=== PATIENT | female | born 1965 | race Caucasian/White ===

== ENCOUNTER 2017-07-25 17:18 | Observation (INO) ==
--- NOTE | 2017-07-25 18:55 | Emergency Department Note ---
Disposition Clinical Impression: Chest pain Qualifiers: Chest pain type: unspecified Qualified Code(s): R07.9 - Chest pain, unspecified Iron deficiency anemia Qualifiers: Iron deficiency anemia type: unspecified iron deficiency Qualified Code(s): D50.9 - Iron deficiency anemia, unspecified Disposition: Admitted As Inpatient Condition: Fair Referrals: NONE,PCP [Primary Care Provider] - Forms: ED Satisfaction Letter, Work/School Release Time of Disposition: 19:59 General Adult HPI - General Chief complaint: ED Abdominal Pain Stated complaint: "weak & tired, low iron" Time Seen by Provider: 07/25/17 18:40 Source: patient Mode of arrival: ambulatory Limitations: no limitations Nursing Notes Reviewed: Yes Vital Signs Reviewed: Yes - History of Present Illness HPI Narrative: 51-year-old with a history of recurrent iron deficiency anemia who comes in complaining of increasing fatigue tiredness she has been having intermittent chest pain for the last couple of days and some dyspnea on exertion. Saw her doctor yesterday they did some lab work hemoglobin was 10 range but she did get a ferritin level of 3.7 with a normal range of 11.1-264 her iron level was 18 reference range is 50-175 her total iron binding capacity is in the normal range along with a normal percent saturation. Pt Subjective Complaint: Generalized weakness intermittent chest pain history of low iron Onset (ago): day(s) (2) Location: chest Radiation: non-radiation Pain Severity: moderate Quality: aching Consistency: intermittent Improves with: nothing Worsens with: other (Exertion) Associated symptoms: Reports: chest pain, weakness - Related Data Allergies Allergy/AdvReac Type Severity Reaction Status Date / Time sulfamethoxazole AdvReac Hives Verified 07/25/17 17:26 [From ] trimethoprim [From ] AdvReac Hives Verified 07/25/17 17:26 All systems ED: reviewed and negative except as stated. Constitutional: Denies: fever, chills, weakness, weight change Eyes: Denies: eye pain, eye discharge, vision change ENT ED: Denies: ear pain, throat pain, dental pain, hearing loss, epistaxis, congestion, dysphagia Cardiovascular: Reports: chest pain. Denies: palpitations, dyspnea on exertion , edema, syncope Respiratory: Denies: cough, dyspnea, wheezes, hemoptysis, stridor Gastrointestinal: Denies: abdominal pain, nausea, vomiting, diarrhea, constipation, hematemesis, melena, hematochezia Genitourinary: Denies: dysuria, frequency, hematuria, discharge Musculoskeletal: Denies: back pain, neck pain, arthralgia, myalgia Integumentary: Denies: rash, abrasion, lesions Neurological: Denies: headache, weakness, numbness, paresthesias, confusion, abnormal gait, vertigo Psychiatric: Denies: anxiety, depression, suicidal thoughts, homicidal thoughts , auditory hallucinations, visual hallucinations Endocrine: Denies: fatigue Hematological/Lymphatic: Denies: easy bleeding, easy bruising Allergic/Immunologic: Denies: facial swelling, urticaria Past Medical History - Past Medical History Medical history: Reports: arthritis, migraine, other Psychiatric history: Reports: depression - Social History Smoking Status: Current every day smoker Smokeless Tobacco Status: Yes Alcohol use: Reports: none Drug use: Reports: none Physical Exam - General Limitations: no limitations General appearance: alert, in no apparent distress - Head Head exam: atraumatic, normocephalic, normal inspection - Eye Eye exam: Present: normal appearance, PERRL, EOMI - ENT ENT exam: normal exam - Neck Neck exam: Present: normal inspection, full ROM, trachea midline - Chest Chest inspection: Present: normal inspection, symmetric chest wall rise - Respiratory Respiratory exam: Present: normal lung sounds bilaterally - Cardiovascular Cardiovascular exam: Present: regular rate, normal rhythm, normal heart sounds - Abdominal Exam Abdominal exam: Present: soft, Non-Tender. Absent: tenderness, distention, guarding, rebound, rigidity - Extremities Exam Extremities exam: Present: normal inspection, full ROM. Absent: tenderness, pedal edema - Expanded Lower Extremity Exam Neurovascular/Tendon exam: Absent: motor deficit, sensory deficit, tendon deficit Gait: observed and normal - Back Exam Back exam: Present: normal inspection, full ROM. Absent: tenderness - Neurological Exam Neurological exam: Present: alert, oriented X3 - Psychiatric Psychiatric exam: Present: normal affect, normal mood - Skin Skin exam: Present: warm, dry, intact, normal color Course - Reevaluation(s) Reevaluation #1: 51-year-old female with risk factors who comes in complaining of some intermittent chest discomfort last 2 days also tired and weak has a history of iron deficiency anemia with difficulty absorbing iron. Time: 19:58 - Consultations Consultation #1: Discussed with , admit. Time: 19:58 Vital Signs Temperature 98.0 F 07/25/17 17:23 Pulse Rate 83 07/25/17 17:23 Respiratory Rate 18 07/25/17 17:23 Blood Pressure 138/82 07/25/17 17:23 O2 Sat by Pulse Oximetry 100 07/25/17 17:23 Temperature 98.0 F 07/25/17 17:23 Pulse Rate 85 07/25/17 20:01 Respiratory Rate 16 07/25/17 20:01 Blood Pressure 132/76 07/25/17 20:01 O2 Sat by Pulse Oximetry 96 07/25/17 20:01 Oxygen Delivery Oxygen Delivery Room Air Medical Decision Making - Lab Data Result diagrams: 07/25/17 18:57 07/25/17 18:57 Lab Results 07/25/17 07/25/17 Range/Units 18:57 18:57 WBC 6.4 (4.3-11.1) K/mcL RBC 3.80 L (3.82-4.97) M/mcL Hgb 9.7 L (11.5-15.4) g/dL Hct 31.7 L (35.3-44.9) % MCV 83.4 (83.0-100.0) fL MCH 25.5 L (28.0-33.3) pg MCHC 30.6 L (31.6-35.5) g/dL RDW 14.8 H (11.5-14.5) % Plt Count 214 (140-400) K/mcL MPV 10.8 (9.4-12.4) fL Immature Gran % 0.2 (0-4) % Seg Neutrophils % 51.1 % Lymphocytes % 35.3 % Monocytes % 9.2 % Eosinophils % 3.6 % Basophils % 0.6 % Neutrophils # 3.3 (1.6-8.9) K/mcL Lymphocytes # 2.3 (0.6-4.6) K/mcL Monocytes # 0.6 (0.0-1.3) K/mcL Eosinophils # 0.2 (0.0-0.6) K/mcL Basophils # 0.0 (0.0-0.2) K/mcL Sodium 139 (136-145) mEq/L Potassium 3.5 (3.5-5.1) mEq/L Chloride 108 H (98-107) mEq/L Carbon Dioxide 23 (23-29) mEq/L BUN 27 H (6-20) mg/dL Creatinine 0.80 (0.60-1.20) mg/dL Est GFR ( Amer) > 60 (> 60) Est GFR (Non-Af Amer) > 60 (> 60) BUN/Creatinine Ratio 34 H (6-26) Glucose 94 (70-105) mg/dL Calculated Osmolality 293 (280-300) Calcium 8.6 (8.6-10.3) mg/dL Troponin I < 0.03 (< 0.04) ng/mL - Radiology Data Radiology results reviewed: Yes I reviewed the patient's radiology results. Chest X-Ray 07/25/17 18:07 IMPRESSION: No acute abnormality. D/ / Chidi Boyd MD / Chidi Boyd MD Interpreting Provider: Chidi Boyd MD - EKG Data EKG #1 EKG attestation: Yes I reviewed and interpreted this EKG. EKG shows normal: sinus rhythm Rate: normal Rhythm: NSR [place]/QRS: normal Interpretation: no acute changes
[2017-07-25 19:20] LABS: Basophils % 0.6 %; Eosinophils # 0.2 K/mcL (0.0-0.6); Eosinophils % 3.6 %; Hematocrit 31.7 % (35.3-44.9); Hemoglobin 9.7 g/dL (11.5-15.4); Immature Granulocytes % 0.2 % (0-4); Lymphocytes # 2.3 K/mcL (0.6-4.6); Lymphocytes % 35.3 %; Mean Corpuscular HGB Conc 30.6 g/dL (31.6-35.5); Mean Corpuscular Hemoglobin 25.5 pg (28.0-33.3); Mean Corpuscular Volume 83.4 fL (83.0-100.0); Mean Platelet Volume 10.8 fL (9.4-12.4); Monocytes # 0.6 K/mcL (0.0-1.3); Monocytes % 9.2 %; Neutrophils # 3.3 K/mcL (1.6-8.9); Platelet Count 214 K/mcL (140-400); Red Cell Distribution Width 14.8 % (11.5-14.5); Segmented Neutrophils % 51.1 %
[2017-07-25 19:44] LABS: BUN/Creatinine Ratio 34 (6-26); Blood Urea Nitrogen 27 mg/dL (6-20); Calcium 8.6 mg/dL (8.6-10.3); Carbon Dioxide 23 mEq/L (23-29); Chloride 108 mEq/L (98-107); Glucose 94 mg/dL (70-105); Osmolality,Calculated 293 (280-300); Potassium 3.5 mEq/L (3.5-5.1); Sodium 139 mEq/L (136-145); Troponin I < 0.03 ng/mL (< 0.04); eGFR For African Americans > 60 (> 60); eGFR For Non-African Americans > 60 (> 60)
[2017-07-25] MEDS ORDERED: Acetaminophen 325 MG TABLET PO PRN (21:57)
[2017-07-25] MEDS ORDERED: Naloxone 0.4 MG/ML INJ IVP PRN (21:57)
[2017-07-25 22:13] LABS: % Iron Saturation 3 % (15-50); Iron 17 mcg/dL (50-170); Transferrin 348 mg/dL (203-362)
[2017-07-25] MEDS ORDERED: Iron Sucrose Complex 400 MG in 0.9 % Sodium Chloride 250 ML IVPB ONE (22:18)
--- NOTE | 2017-07-25 22:25 | Internal Med History&Physical ---
Date of Encounter: 07/25/17 Time of Encounter: 22:19 Internal Medicine - H&P: HPI Chief complaint: anemia Admitted From: Emergency Dept Plans for Post Hospital Care: Home History of present illness: Ms. Nick is a 51 year old female with history of depression, arthritis, migraines, iron deficiency anemia can't tolerate PO iron who presents to the ED on the recommendation of her PCP for anemia. The patient has been increasingly lethargic, weak, and easily short of breath for a few weeks. This has increased since two days ago. She called her PCP yesterday and asked for some lab work to be done including iron studies as she has a history of iron deficiency. She was called to go to the ED today as her iron numbers came back low. She has a history of this since 2016 and had a colonoscopy/EGD that were unremarkable. She describes intermittent chest discomfort with no radiation. EKG with no ischemic findings. She says she had similar discomfort 2 years ago as well with low iron and a stress test was negative. She says she has needed IV iron transfusion in the past but none in 2 years. She tells me she used to see someone at the cancer center for this but I do not have any documentation of this. She denies headache, fever, chills, nausea, vomiting, chest pain, shortness of breath, urinary symptoms, abdominal pain, diarrhea, constipation, hematochezia, melena, neurological symptoms. Iron studies done yesterday showed ferritin of 3.7 and iron level of 18. Past Med Surg Social Fam HX - Past Medical History Medical history: arthritis, migraine, other Additional medical history: IBS Psychiatric history: depression - Past Surgical History Additional surgical history: Bowel and vaginal repair 2009 - Social History Smoking Status: Current every day smoker Smokeless Tobacco Status: Yes Alcohol use: none Drug use: none - Family History Father Adopted: No Living Status: Still Living Hx Family Cardiac Disorders: Yes Internal Medicine - H&P: Meds Acetaminophen/Butalbital/Caffe [Fioricet] 1 tab PO BID 07/25/17 [History] Baclofen [Lioresal] 10 mg PO TID 07/25/17 [History] BuPROPion SR (12 HR) [Wellbutrin SR] 150 mg PO BID 07/25/17 [History] Calcium Carbonate [Calcium] 600 mg PO BID 07/25/17 [History] Estradiol [Estradiol] 2 mg PO DAILY 07/25/17 [History] FLUoxetine HCl [Fluoxetine HCl] 80 mg PO DAILY 07/25/17 [History] Gabapentin [Neurontin] 800 mg PO TID 07/25/17 [History] HYDROcodone/Acet 10/325 mg [[place] 10-325 mg] 1 tab PO TID 07/25/17 [History] Lubiprostone [Amitiza] 24 mcg PO BID 07/25/17 [History] Meloxicam [Meloxicam] 15 mg PO DAILY 07/25/17 [History] Omeprazole [PriLOSEC] 40 mg PO DAILY 07/25/17 [History] Ondansetron HCl [Ondansetron HCl] 4 mg PO BID 07/25/17 [History] Polymyxn-B/Trimeth Opth Drops [Polytrim Opth Drops] 1 drop OP DAILY 07/25/17 [ History] Ropinirole HCl [Requip] 4 mg PO HS 07/25/17 [History] SUMAtriptan Succinate [Imitrex] 100 mg PO DAILY PRN 07/25/17 [History] Topiramate [Topamax] 100 mg PO BID 07/25/17 [History] 3 Allergy/AdvReac Type Severity Reaction Status Date / Time sulfamethoxazole AdvReac Hives Verified 07/25/17 20:28 [From ] trimethoprim [From ] AdvReac Hives Verified 07/25/17 20:28 All Systems PM: A 10-system review of systems was performed and is negative for pertinent findings except as documented above in the HPI. Review of systems: All systems reviewed are negative except what is mentioned above. - Constitutional Vitals: Temp Pulse Resp BP Pulse Ox 98.0 F 73 16 123/73 100 07/25/17 17:23 07/25/17 21:09 07/25/17 21:09 07/25/17 21:09 07/25/17 21:09 Exam: GEN: NAD HEENT: AT, NC, No cyanosis, oral mucosa is moist, No JVD Lymphatics: No lymphadenoapthy Eyes: Extrocular muscles intact, anicteric CVS:RRR. S1, S2, No m/r/g RESP: CTAB ABD: Soft, NT, ND, +BS EXT: No edema, No rashes, 2+ DP NEURO: Nonfocal, CN II-XII intact, No focal motor or sensory deficits Psych: Cooperative, Not anxious or depressed Internal Med - H&P Results - Labs CBC & Chem 7: 07/25/17 18:57 07/25/17 18:57 - Assessment and plan (1) Iron deficiency anemia Current Visit: Yes Status: Acute Assessment and plan: Will give IV iron. Check iron studies. c/s hematology. Had EGD/colonoscopy 2 years ago reportedly was ok. Can't tolerate oral iron. Qualifiers: Iron deficiency anemia type: other iron deficiency Qualified Code(s): D50.8 - Other iron deficiency anemias (2) Chest pain Current Visit: Yes Status: Acute Assessment and plan: Likely non cardiac. similar presentation 2 years ago with iron deficiency. will trend cardiac enzymes for now. EKG with no ischemic findings. Qualifiers: Chest pain type: unspecified Qualified Code(s): R07.9 - Chest pain, unspecified (3) Weakness Current Visit: Yes Status: Acute Assessment and plan: Likely from iron deficiency. Will get PT/OT. check TSH. will give IV iron. (4) Depression Current Visit: Yes Status: Acute Assessment and plan: Resume home meds Qualifiers: Depression Type: unspecified Qualified Code(s): F32.9 - Major depressive disorder, single episode, unspecified (5) DVT prophylaxis Current Visit: Yes Status: Acute Assessment and plan: scds - Time Spent With Patient Total time spent is greater than 50% in coordination of care (as documented) at patient's floor/unit and/or counseling patient:
[2017-07-25 22:32] LABS: Ferritin < 8 ng/mL (10-120)
[2017-07-25 23:34] LABS: Folate 15.7 ng/mL (3.0-16.0)
[2017-07-26] MEDS ORDERED: *HR* LORazepam 0.5 MG TABLET PO ONE (00:54)
[2017-07-26 02:02] LABS: Basophils % 0.6 %; Eosinophils # 0.3 K/mcL (0.0-0.6); Hematocrit 29.2 % (35.3-44.9); Hemoglobin 8.9 g/dL (11.5-15.4); Immature Granulocytes % 0.4 % (0-4); Lymphocytes # 2.2 K/mcL (0.6-4.6); Lymphocytes % 41.6 %; Mean Corpuscular HGB Conc 30.5 g/dL (31.6-35.5); Mean Corpuscular Hemoglobin 25.9 pg (28.0-33.3); Mean Corpuscular Volume 84.9 fL (83.0-100.0); Mean Platelet Volume 10.9 fL (9.4-12.4); Monocytes # 0.6 K/mcL (0.0-1.3); Monocytes % 10.2 %; Neutrophils # 2.3 K/mcL (1.6-8.9); Platelet Count 175 K/mcL (140-400); Red Blood Count 3.44 M/mcL (3.82-4.97); Red Cell Distribution Width 14.7 % (11.5-14.5); Segmented Neutrophils % 42.2 %
[2017-07-26 02:20] LABS: BUN/Creatinine Ratio 29 (6-26); Blood Urea Nitrogen 23 mg/dL (6-20); Calcium 8.1 mg/dL (8.6-10.3); Carbon Dioxide 24 mEq/L (23-29); Chloride 110 mEq/L (98-107); Glucose 122 mg/dL (70-105); Magnesium 2.1 mg/dL (1.6-2.6); Osmolality,Calculated 293 (280-300); Potassium 3.2 mEq/L (3.5-5.1); Sodium 139 mEq/L (136-145); eGFR For African Americans > 60 (> 60); eGFR For Non-African Americans > 60 (> 60)
[2017-07-26] MEDS: Ondansetron 4 MG/2 ML VIAL IVP PRN (04:01)
[2017-07-26] MEDS: Topiramate 100 MG TABLET PO SCH ×2 (10:36→21:40)
[2017-07-26] MEDS: BuPROPion SR (12 HR) 150 MG TABLET PO SCH ×2 (10:36→21:40)
[2017-07-26] MEDS: FLUoxetine 20 MG CAPSULE PO SCH (10:37)
[2017-07-26] MEDS: Gabapentin 400 MG CAPSULE PO SCH ×3 (10:37→21:40)
[2017-07-26] MEDS: Baclofen 10 MG TABLET PO SCH ×3 (10:37→21:40)
[2017-07-26] MEDS: LUBIPROSTONE 24 MCG PO SCH ×2 (10:37→21:41)
[2017-07-26] MEDS: Polymyxn-B/Trimeth Opth Drops 10 ML BOTTLE OP SCH (10:47)
--- NOTE | 2017-07-26 11:49 | Oncology Inp Consult Note ---
<Ollie Romero - Last Filed: 07/26/17 21:53> Date of Encounter: 07/26/17 - Data of Consult Requesting Physician: Carson Mitchell MD Primary Care Provider: PCP NONE - Consult Narrative History of present illness: Ms. Nick is a 51 year old female Medications and Allergies Acetaminophen/Butalbital/Caffe [Fioricet] 1 tab PO BID 07/25/17 [History] Baclofen [Lioresal] 10 mg PO TID 07/25/17 [History] BuPROPion SR (12 HR) [Wellbutrin SR] 150 mg PO BID 07/25/17 [History] Calcium Carbonate [Calcium] 600 mg PO BID 07/25/17 [History] Estradiol [Estradiol] 2 mg PO DAILY 07/25/17 [History] FLUoxetine HCl [Fluoxetine HCl] 80 mg PO DAILY 07/25/17 [History] Gabapentin [Neurontin] 800 mg PO TID 07/25/17 [History] HYDROcodone/Acet 10/325 mg [[place] 10-325 mg] 1 tab PO TID 07/25/17 [History] Lubiprostone [Amitiza] 24 mcg PO BID 07/25/17 [History] Meloxicam [Meloxicam] 15 mg PO DAILY 07/25/17 [History] Omeprazole [PriLOSEC] 40 mg PO DAILY 07/25/17 [History] Ondansetron HCl [Ondansetron HCl] 4 mg PO BID 07/25/17 [History] Polymyxn-B/Trimeth Opth Drops [Polytrim Opth Drops] 1 drop OP DAILY 07/25/17 [ History] Ropinirole HCl [Requip] 4 mg PO 1700 07/25/17 [History] SUMAtriptan Succinate [Imitrex] 100 mg PO DAILY PRN 07/25/17 [History] Topiramate [Topamax] 100 mg PO BID 07/25/17 [History] 3 Allergy/AdvReac Type Severity Reaction Status Date / Time sulfamethoxazole AdvReac Hives Verified 07/25/17 20:28 [From ] trimethoprim [From ] AdvReac Hives Verified 07/25/17 20:28 Oncology - Exam - Constitutional Vitals: Temp Pulse Resp BP Pulse Ox 98.0 F 69 14 146/80 100 07/26/17 19:17 07/26/17 19:17 07/26/17 19:17 07/26/17 19:17 07/26/17 19:17 Oncology - Results Labs: 3 07/26/17 07/26/17 07/26/17 07:04 01:16 01:16 WBC RBC Hgb Hct MCV MCH MCHC RDW Plt Count MPV Immature Gran % Seg Neutrophils % Lymphocytes % Monocytes % Eosinophils % Basophils % Neutrophils # Lymphocytes # Monocytes # Eosinophils # Basophils # PT INR Sodium 139 Potassium 3.2 L Chloride 110 H Carbon Dioxide 24 BUN 23 H Creatinine 0.80 Est GFR ( Amer) > 60 Est GFR (Non-Af Amer) > 60 BUN/Creatinine Ratio 29 H Glucose 122 H Calculated Osmolality 293 Calcium 8.1 L Magnesium 2.1 Troponin I < 0.03 Vitamin B12 Folate TSH 1.910 3 07/26/17 07/26/17 07/25/17 01:16 01:16 22:39 WBC 5.4 RBC 3.44 L Hgb 8.9 L Hct 29.2 L MCV 84.9 MCH 25.9 L MCHC 30.5 L RDW 14.7 H Plt Count 175 MPV 10.9 Immature Gran % 0.4 Seg Neutrophils % 42.2 Lymphocytes % 41.6 Monocytes % 10.2 Eosinophils % 5.0 Basophils % 0.6 Neutrophils # 2.3 Lymphocytes # 2.2 Monocytes # 0.6 Eosinophils # 0.3 Basophils # 0.0 PT 11.0 INR 1.0 Sodium Potassium Chloride Carbon Dioxide BUN Creatinine Est GFR ( Amer) Est GFR (Non-Af Amer) BUN/Creatinine Ratio Glucose Calculated Osmolality Calcium Magnesium Troponin I < 0.03 Vitamin B12 Folate TSH 3 07/25/17 22:39 WBC RBC Hgb Hct MCV MCH MCHC RDW Plt Count MPV Immature Gran % Seg Neutrophils % Lymphocytes % Monocytes % Eosinophils % Basophils % Neutrophils # Lymphocytes # Monocytes # Eosinophils # Basophils # PT INR Sodium Potassium Chloride Carbon Dioxide BUN Creatinine Est GFR ( Amer) Est GFR (Non-Af Amer) BUN/Creatinine Ratio Glucose Calculated Osmolality Calcium Magnesium Troponin I Vitamin B12 177 L Folate 15.7 TSH Consult Discharge Plan - Plan Referrals: NONE,PCP [Primary Care Provider] - - Attending Attestation I have seen and examined Ms. Nick and agree with Ms. Dorantes's assessment. She presented with fatigue and abdominal pain. On exam, she has tenderness about her RLQ. Labs c/w iron deficiency and B12 deficiency. Received venofer 400 mg x 1 by the hospitalist team, and this will be followed up as an outpatient. B12 deficient, and injections initiated. Would continue with 4 daily injections then once weekly x 4-this can be performed as an outpatient. She is tender about RLQ without clear rebound or guarding. Agree with CT imaging to assess for appendicitis or right colon/cecal pathology given iron deficiency. I am worried she has occult GI bleeding as source of anemia. Would consider repeat GI evaluation in near future as well. She is s/p BOB/BSO and has no other s/sx of bleeding. <Adelina Dorantes L - Last Filed: 07/27/17 07:43> Date of Encounter: 07/26/17 Time of Encounter: 10:30 Assessment and Plan (1) B12 deficiency Status: Acute Assessment and plan: Serum B12 low at 177. Ordered B12 1000 mcg SQ daily- recommend daily injections x4 days total, please continue at discharge. Will arrange for follow up with hematology for further management, following her daily injections she would likely need B12 weekly x4 then can change to monthly as an outpatient. Will check parietal cell IgG and Intrinsic actor Ab. (2) Iron deficiency anemia Status: Acute Assessment and plan: History of NIKI with prior parental iron infusions. She cannot tolerate PO iron secondary to exacerbation of constipation associated with her IBS. Etiology of NIKI unclear, consider bleeding as source. Check occult stool. She has had prior workup for celiac disease which has been negative. She does have IBS and malabsorption syndrome is suspected, which would be consistent with her B12 deficiency Most recent colonoscopy/EGD report reviewed from August 2014, pathology negative for dysplasia/malignancy, esophagus negative for H. pylori and reveals chronic gastritis. She is due for scopes every 5 years per GI recommendations secondary to her IBS and history of polyps. She may need updated scopes, dependent upon further workup Agree with IV Iron. Will arrange for follow up upon discharge for continued monitoring and future IV Iron if needed. Of note, she does report RLQ pain that has been increasing over past month, she reports mild rebound tenderness and discomfort at McBurney's point on palpation. Ordered CT abdomen/pelvis with IV and oral contrast to assess for potential acute appendicitis or potential colon pathology to explain NIKI. She is s/p total hysterectomy. Qualifiers: Iron deficiency anemia type: other iron deficiency Qualified Code(s): D50.8 - Other iron deficiency anemias - Data of Consult Patient: new to practice Consult date: 07/26/17 Requesting Physician: Carson Mitchell MD Primary Care Provider: PCP NONE - Consult Narrative Reason for consult: NIKI, B12 deficiency History of present illness: Ms. Nick is a 51 year old female with past medical history significant for depression, arthritis, migraines, iron deficiency anemia with inability to tolerate PO iron and IBS. Patient presented to the ER from recommendation from her PCP for NIKI anemia, RLQ abdominal pain, weakness, SOB and CP. Patient states over the past few weeks she has felt increasingly fatigued now with SOB and mild midsternal chest pain, which led to her presentation to her PCP who ordered an anemia workup. Ms. Nick was a previous patient of the cancer center in 2012 where she was evaluated for her NIKI and received iron infusions. According to patient her most recent colonoscopy/EGD was in 2015 which was benign according to patient. She has been recommended to undergo upper/lower GI scopes ever 5 years secondary to her IBD symptoms. She denies recent hematochezia, hematuria, hematemesis or melena. She does report RLQ abdominal pain which is tender upon palpation. She denies recent fever, chills, unintended weight loss or appetite changes. Laboratory data reveals hgb 8.9, Iron levels low at 17, 3% saturation, Ferritin <8, folate normal 15.7 and B12 low at 177. Kidney function normal. Past Med Surg Social Fam HX - Past Medical History Medical history: arthritis, migraine, other Additional medical history: IBS Psychiatric history: depression - Past Surgical History Additional surgical history: Bowel and vaginal repair 2009 - Social History Smoking Status: Current every day smoker Smokeless Tobacco Status: Yes Alcohol use: none Drug use: none - Family History Father Adopted: No Living Status: Still Living Hx Family Cardiac Disorders: Yes Constitutional: Present: fatigue, headache(s), weakness. Absent: anorexia, chills, fever(s), night sweats, weight loss Eyes: Absent: change in vision Nose, mouth and throat: Absent: dysphagia Cardiovascular: Absent: chest pain Respiratory: Present: dyspnea. Absent: cough Gastrointestinal: Present: as per HPI, abdominal pain, nausea. Absent: diarrhea , vomiting Genitourinary: Absent: dysuria, hematuria Musculoskeletal: Present: muscle weakness Integumentary: Absent: rash, wounds Neurological: Absent: focal weakness, frequent falls Psychiatric: Present: as per HPI Endocrine: Present: as per HPI Hematologic/Lymphatic: Present: as per HPI Oncology - Exam - Constitutional Vitals: Temp Pulse Resp BP Pulse Ox 98.8 F 73 18 111/65 98 07/26/17 11:12 07/26/17 11:12 07/26/17 11:12 07/26/17 11:12 07/26/17 11:12 General appearance: cooperative, no acute distress, no febrile - Head Head exam: Present: atraumatic - ENT ENT exam: Present: mucous membranes moist - Respiratory Respiratory exam: Present: CTAB. Absent: respiratory distress - Cardiovascular Cardiovascular exam: Present: RRR, +S1, +S2 - GI/Abdominal GI/Abdominal exam: Present: normal bowel sounds, soft. Absent: distended, guarding, rigid Additional comments: RLQ tenderness on palpation with tenderness at McBurney's Point, patient reports mild discomfort with rebound tenderness, no guarding, negative psoas sign, negative obturator sign - Extremities Exam Extremities exam: Present: normal inspection. Absent: calf tenderness - Neurological Exam Neurological exam: Present: alert, oriented X3, no focal deficits, strengths equal and symetr throughout - Psychiatric Psychiatric exam: Present: normal affect, normal mood - Skin Skin exam: Present: dry, intact, normal color, warm Oncology - Results Labs: 3 07/26/17 07/26/17 07/26/17 07:04 01:16 01:16 WBC RBC Hgb Hct MCV MCH MCHC RDW Plt Count MPV Immature Gran % Seg Neutrophils % Lymphocytes % Monocytes % Eosinophils % Basophils % Neutrophils # Lymphocytes # Monocytes # Eosinophils # Basophils # PT INR Sodium 139 Potassium 3.2 L Chloride 110 H Carbon Dioxide 24 BUN 23 H Creatinine 0.80 Est GFR ( Amer) > 60 Est GFR (Non-Af Amer) > 60 BUN/Creatinine Ratio 29 H Glucose 122 H Calculated Osmolality 293 Calcium 8.1 L Magnesium 2.1 Troponin I < 0.03 Vitamin B12 Folate TSH 1.910 3 07/26/17 07/26/17 07/25/17 01:16 01:16 22:39 WBC 5.4 RBC 3.44 L Hgb 8.9 L Hct 29.2 L MCV 84.9 MCH 25.9 L MCHC 30.5 L RDW 14.7 H Plt Count 175 MPV 10.9 Immature Gran % 0.4 Seg Neutrophils % 42.2 Lymphocytes % 41.6 Monocytes % 10.2 Eosinophils % 5.0 Basophils % 0.6 Neutrophils # 2.3 Lymphocytes # 2.2 Monocytes # 0.6 Eosinophils # 0.3 Basophils # 0.0 PT 11.0 INR 1.0 Sodium Potassium Chloride Carbon Dioxide BUN Creatinine Est GFR ( Amer) Est GFR (Non-Af Amer) BUN/Creatinine Ratio Glucose Calculated Osmolality Calcium Magnesium Troponin I < 0.03 Vitamin B12 Folate TSH 3 07/25/17 22:39 WBC RBC Hgb Hct MCV MCH MCHC RDW Plt Count MPV Immature Gran % Seg Neutrophils % Lymphocytes % Monocytes % Eosinophils % Basophils % Neutrophils # Lymphocytes # Monocytes # Eosinophils # Basophils # PT INR Sodium Potassium Chloride Carbon Dioxide BUN Creatinine Est GFR ( Amer) Est GFR (Non-Af Amer) BUN/Creatinine Ratio Glucose Calculated Osmolality Calcium Magnesium Troponin I Vitamin B12 177 L Folate 15.7 TSH
[2017-07-26] MEDS: Cyanocobalamin (B-12) 1,000 MCG/ML VIAL SQ SCH (15:59)
[2017-07-26] MEDS: rOPINIRole 3 MG, rOPINIRole 1 MG PO SCH (16:41)
[2017-07-26] MEDS ORDERED: Isovue-370 500 ML INFUS..BTL IV ONE (17:16)
--- NOTE | 2017-07-26 18:05 | Electrocardiograph Report ---
[address] [place], [place] [address] Test Date: 2017-07-25 Pat Name: Sujatha Nick Department: 104 Room: 3B Gender: F Crime Scene Technician: : 1965 Requested By: Vineet Carmona Order Number: [id number] Reading MD: Jt Mock Measurements Intervals [place] Rate: 69 P: 56 MS: 180 QRS: 34 QRSD: 84 T: 78 QT: 396 QTc: 414 Interpretive Statements SINUS RHYTHM LEFT ATRIAL ENLARGEMENT Electronically Signed On 07-26-2017 18:04:15 EDT by Jt Mock
--- NOTE | 2017-07-26 20:44 | Internal Med Progress Note ---
Date of Encounter: 07/26/17 Time of Encounter: 10:00 - Assessment and plan (1) Chest pain Current Visit: Yes Status: Acute Assessment and plan: Likely non cardiac. similar presentation 2 years ago with iron deficiency. Troponins are negative 3 EKG no ischemic changes Continue cardiac monitoring Check EKG in a.m Consult cardiology as needed. Qualifiers: Chest pain type: unspecified Qualified Code(s): R07.9 - Chest pain, unspecified (2) Iron deficiency anemia Current Visit: Yes Status: Acute Assessment and plan: Will give IV iron. Unable to take by mouth iron due to exacerbation of constipation associated with her IBS hematology consult and appreciate recommendations IV iron patient will need to follow up as outpatient EGD/colonoscopy report 2014 negative for dysplasia/Ligament seen esophagus negative for H. pylori reveals chronic gastritis per GI recommendations she is recommended scope every 5 year Qualifiers: Iron deficiency anemia type: other iron deficiency Qualified Code(s): D50.8 - Other iron deficiency anemias (3) Weakness Current Visit: Yes Status: Acute Assessment and plan: Likely from iron deficiency. Will get PT/OT. TSH within normal limits (4) Depression Current Visit: Yes Status: Acute Assessment and plan: Resume home meds Qualifiers: Depression Type: unspecified Qualified Code(s): F32.9 - Major depressive disorder, single episode, unspecified (5) B12 deficiency Current Visit: Yes Status: Acute Assessment and plan: Serum B12 low at 177 Per hematology recommendations B12 thousand micrograms subcutaneous daily recommend daily injections 7 days total which will be continued at discharge Follow-up as outpatient with hematology for further management (6) DVT prophylaxis Current Visit: Yes Status: Acute Assessment and plan: scds - Time Spent With Patient Total time spent is greater than 50% in coordination of care (as documented) at patient's floor/unit and/or counseling patient: - Subjective Interval history: Patient was seen and examined at bedside earlier this morning. Presently patient denies any pain or discomfort. She denies any melena hematochezia or hematemesis. She is tolerating oral intake. I did review treatment plan with patient who verbalized understanding. - Constitutional Vitals: Temp Pulse Resp BP Pulse Ox 98.0 F 69 14 146/80 100 07/26/17 19:17 07/26/17 19:17 07/26/17 19:17 07/26/17 19:17 07/26/17 19:17 General appearance: Present: A&O X 3 - Head Head exam: Present: atraumatic, normocephalic - Eye Eye exam: Present: PERRL, conjuntiva pink, sclera anicteric Pupils: Present: PERRL - Neck Neck exam general surgery: Present: supple, trachea midline. Absent: lymphadenopathy - Respiratory Respiratory exam: Present: CTAB. Absent: accessory muscle use, rales, rhonchi, wheezes - Cardiovascular Cardiovascular exam: Present: RRR, +S1, +S2. Absent: diastolic murmur, gallop, rubs, systolic murmur - GI/Abdominal GI/Abdominal exam: Present: normal bowel sounds, soft, no peritoneal signs. Absent: distended, tenderness - Extremities Exam Extremities exam: Present: warm, radial pulses palpable and symmetrical. Absent : calf tenderness, cyanotic, pedal edema - Neurological Exam Neurological exam: Present: CN II-XII intact, oriented X3, no focal deficits. Absent: pronater drift, facial droop, speech deficit - Skin Skin exam: Present: dry, intact Internal Medicine: Result - Labs CBC & Chem 7: 07/26/17 01:16 07/26/17 01:16 Labs: Short CBC 07/26/17 Range/Units 01:16 WBC 5.4 (4.3-11.1) K/mcL Hgb 8.9 L (11.5-15.4) g/dL Hct 29.2 L (35.3-44.9) % Plt Count 175 (140-400) K/mcL Neutrophils # 2.3 (1.6-8.9) K/mcL BMP 07/26/17 01:16 Sodium 139 Potassium 3.2 L Chloride 110 H Carbon Dioxide 24 BUN 23 H Creatinine 0.80 Glucose 122 H Calcium 8.1 L Cardiac Enzymes 07/26/17 07/26/17 Range/Units 01:16 07:04 Troponin I < 0.03 < 0.03 (< 0.04) ng/mL - ABG Interpretation ABG results: PT/INR, D-dimer PT 11.0 Seconds (9.4-12.1) 07/25/17 22:39 Consult Discharge Plan - Plan Referrals: NONE,PCP [Primary Care Provider] -
[2017-07-26] MEDS ORDERED: NON-FORMULARY MEDICATION 1 EACH EACH (Ropinirole Hcl [Requip] 4 MG) PO SCH (21:00)
[2017-07-26] MEDS ORDERED: *HR* LORazepam 2 MG/ML VIAL IVP ONE (22:00)
[2017-07-27 01:58] LABS: Basophils % 0.6 %; Eosinophils # 0.2 K/mcL (0.0-0.6); Eosinophils % 3.1 %; Hematocrit 31.4 % (35.3-44.9); Hemoglobin 9.5 g/dL (11.5-15.4); Immature Granulocytes % 0.3 % (0-4); Lymphocytes # 1.7 K/mcL (0.6-4.6); Lymphocytes % 25.7 %; Mean Corpuscular HGB Conc 30.3 g/dL (31.6-35.5); Mean Corpuscular Hemoglobin 25.5 pg (28.0-33.3); Mean Corpuscular Volume 84.2 fL (83.0-100.0); Monocytes # 0.8 K/mcL (0.0-1.3); Neutrophils # 3.9 K/mcL (1.6-8.9); Platelet Count 195 K/mcL (140-400); Red Blood Count 3.73 M/mcL (3.82-4.97); Red Cell Distribution Width 14.7 % (11.5-14.5); Segmented Neutrophils % 58.3 %
[2017-07-27 02:21] LABS: BUN/Creatinine Ratio 22 (6-26); Blood Urea Nitrogen 18 mg/dL (6-20); Calcium 8.4 mg/dL (8.6-10.3); Carbon Dioxide 23 mEq/L (23-29); Chloride 116 mEq/L (98-107); Glucose 99 mg/dL (70-105); Osmolality,Calculated 300 (280-300); Potassium 3.9 mEq/L (3.5-5.1); Sodium 144 mEq/L (136-145); eGFR For African Americans > 60 (> 60); eGFR For Non-African Americans > 60 (> 60)
[2017-07-27] MEDS ORDERED: Cyanocobalamin (B-12) 1,000 MCG/ML VIAL SQ SCH (09:00)
[2017-07-27] MEDS: Cyanocobalamin (B-12) 1,000 MCG/ML VIAL SQ SCH (09:59)
[2017-07-27] MEDS: FLUoxetine 20 MG CAPSULE PO SCH (09:59)
[2017-07-27] MEDS: LUBIPROSTONE 24 MCG PO SCH ×2 (10:00→21:28)
[2017-07-27] MEDS: Baclofen 10 MG TABLET PO SCH ×3 (10:00→21:28)
[2017-07-27] MEDS: BuPROPion SR (12 HR) 150 MG TABLET PO SCH ×2 (10:00→21:28)
[2017-07-27] MEDS: Topiramate 100 MG TABLET PO SCH ×2 (10:00→21:28)
[2017-07-27] MEDS: Gabapentin 400 MG CAPSULE PO SCH ×3 (10:00→21:28)
[2017-07-27] MEDS: Ondansetron 4 MG/2 ML VIAL IVP PRN (13:45)
[2017-07-27] MEDS: SUMAtriptan succinate 50 MG TABLET PO PRN ×2 (14:11→15:40)
[2017-07-27] MEDS: Polymyxn-B/Trimeth Opth Drops 10 ML BOTTLE OP SCH (14:12)
--- NOTE | 2017-07-27 14:41 | Oncology Inp Progress Note ---
Date of Encounter: 07/27/17 Time of Encounter: 14:00 (1) B12 deficiency Current Visit: Yes Status: Acute Assessment and plan: Serum B12 low at 177. Ordered B12 1000 mcg SQ daily- recommend daily injections x4 days total, please continue at discharge. Will arrange for follow up with hematology for further management, following her daily injections she would likely need B12 weekly x4 then can change to monthly as an outpatient. Parietal cell IgG and Intrinsic actor Ab-pending. (2) Iron deficiency anemia Current Visit: Yes Status: Acute Assessment and plan: History of NIKI with prior parental iron infusions. She cannot tolerate PO iron secondary to exacerbation of constipation associated with her IBS. Etiology of NIKI unclear, consider bleeding as source. Occult stool-ordered, no BM She has had prior workup for celiac disease which has been negative. Most recent colonoscopy/EGD report reviewed from August 2014, pathology negative for dysplasia/malignancy, esophagus negative for H. pylori and reveals chronic gastritis. She is due for scopes every 5 years per GI recommendations secondary to her IBS and history of polyps. She may need updated scopes, dependent upon further workup, may be pursued on outpatient basis She received 400 mg venofer yesterday. Need for future iron infusions to be determined on outpatient basis. Her hgb has improved to 9.[address] abdomen/pelvis with no acute findings to explain her RLQ pain or anemia, a few incidental findings noted of fatty liver infiltration, renal cysts, borderline prominence of the common duct at the pancreatic head level without stone or filling defect. She was given a follow up appointment card for Dr. Romero today, we will continue to see her on an outpatient basis. Hematology with otherwise sign off, please feel free to contact for any other questions or concerns. Qualifiers: Iron deficiency anemia type: other iron deficiency Qualified Code(s): D50.8 - Other iron deficiency anemias Oncology: Subj Interval history: Ms. Nick is resting in bed. She reports a migraine headache for which the primary team has just given her medications for. She feels well otherwise. Denies nausea, vomiting or diarrhea. She reports mild RLQ abdominal pain, no acute abdomen. She is requesting that we assist to refill her ativan on an outpatient basis for her anxiety. Advised we are assisting to treat her B12 and NIKI, she was given a card with the primary care hotline to set up an appointment with primary care - Constitutional Vitals: Vital Signs Temp Pulse Resp BP Pulse Ox 07/27/17 10:47 98 F 74 18 106/63 99 07/27/17 06:58 97.9 F 77 18 111/69 99 07/27/17 03:34 98.3 F 72 16 114/69 100 07/26/17 19:17 98.0 F 69 14 146/80 100 07/26/17 15:58 98.1 F 77 17 119/75 96 Intake and Output 07/26/17 07/27/17 07/27/17 23:59 07:59 15:59 Intake Total 840 / 840 360 / 360 Output Total 700 / 700 Balance 140 / 140 360 / 360 Intake: Oral 840 / 840 360 / 360 Output: Urine 700 / 700 Other: Meal Lunch Percent of Meal Consumed 100% # Voids 1 Weight 74.6 kg Patient Weight 07/27/17 23:59 Weight 74.6 kg General appearance: cooperative, no acute distress, no febrile - Head Head exam: Present: atraumatic - ENT ENT exam: Present: mucous membranes moist - Respiratory Respiratory exam: Present: CTAB. Absent: respiratory distress - GI/Abdominal GI/Abdominal exam: Present: normal bowel sounds, soft, tenderness. Absent: guarding, rebound Additional comments: diffuse tenderness, no acute abdomen - Extremities Exam Extremities exam: Present: normal inspection. Absent: calf tenderness - Neurological Exam Neurological exam: Present: alert, oriented X3, no focal deficits, strengths equal and symetr throughout - Psychiatric Psychiatric exam: Present: normal affect, normal mood - Skin Skin exam: Present: dry, intact, normal color, warm Oncology: Obj Data - Labs CBC & Chem 7: 07/28/17 06:04 07/28/17 06:04 Labs: Laboratory Results - last 24 hr 07/27/17 07/27/17 01:02 01:02 WBC 6.7 RBC 3.73 L Hgb 9.5 L Hct 31.4 L MCV 84.2 MCH 25.5 L MCHC 30.3 L RDW 14.7 H Plt Count 195 MPV 11.0 Immature Gran % 0.3 Seg Neutrophils % 58.3 Lymphocytes % 25.7 Monocytes % 12.0 Eosinophils % 3.1 Basophils % 0.6 Neutrophils # 3.9 Lymphocytes # 1.7 Monocytes # 0.8 Eosinophils # 0.2 Basophils # 0.0 Sodium 144 Potassium 3.9 Chloride 116 H Carbon Dioxide 23 BUN 18 Creatinine 0.81 Est GFR ( Amer) > 60 Est GFR (Non-Af Amer) > 60 BUN/Creatinine Ratio 22 Glucose 99 Calculated Osmolality 300 Calcium 8.4 L - Impressions Impressions Abdomen/Pelvis CT 07/26/17 21:10 IMPRESSION: Borderline prominence of the common duct at the pancreatic head level without stone or filling defect. Small low-density renal lesions most likely cysts. Low-density rounded configuration of the left adrenal gland, likely adenoma. Bladder wall thickening raising the question of age-indeterminate cystitis. No acute abnormality otherwise D/ / Duane Medina / Duane Medina Interpreting Provider: Duane Medina - ABG Interpretation ABG results: PT/INR, D-dimer PT 11.0 Seconds (9.4-12.1) 07/25/17 22:39 Consult Discharge Plan - Plan Referrals: NONE,PCP [Primary Care Provider] -
[2017-07-27] MEDS ORDERED: *HR* HYDROcodone/Acet 10/325 mg TABLET PO SCH (15:00)
[2017-07-27] MEDS ORDERED: Acetaminophen/Butalbital/CaffeineTABLET PO PRN (15:21)
[2017-07-27 15:24] LABS: Bilirubin,Urine Negative (Negative); Blood,Urine Negative (Negative); Clarity,Urine Clear (Clear); Color,Urine Yellow (Yellow); Glucose,Urine (UA) Normal (Normal); Ketones,Urine Negative (Negative); Leukocyte Esterase,Urine Negative (Negative); Nitrite,Urine Negative (Negative); Protein,Urine Negative (Neg-Trace); Specific Gravity,Urine 1.019 (1.010-1.025); Urobilinogen,Urine Normal (Normal)
--- NOTE | 2017-07-27 16:24 | Internal Med Progress Note ---
Date of Encounter: 07/27/17 Time of Encounter: 16:20 - Assessment and plan (1) Chest pain Current Visit: Yes Status: Acute Assessment and plan: Likely non cardiac. similar presentation 2 years ago with iron deficiency. Troponins are negative 3 EKG no ischemic changes No chest pain this time Continue cardiac monitoring EKG with no ST-T wave abnormalities Consult cardiology as needed. Qualifiers: Chest pain type: unspecified Qualified Code(s): R07.9 - Chest pain, unspecified (2) Iron deficiency anemia Current Visit: Yes Status: Acute Assessment and plan: Unable to take by mouth iron due to exacerbation of constipation associated with her IBS hematology consult and appreciate recommendations-recommending IV iron as outpatient will need to follow up as outpatient EGD/colonoscopy report 2014 negative for dysplasia/Ligament seen esophagus negative for H. pylori reveals chronic gastritis per GI recommendations she is recommended scope every 5 year Qualifiers: Iron deficiency anemia type: other iron deficiency Qualified Code(s): D50.8 - Other iron deficiency anemias (3) Weakness Current Visit: Yes Status: Acute Assessment and plan: Likely from iron deficiency. Will get PT/OT. TSH within normal limits (4) Depression Current Visit: Yes Status: Acute Assessment and plan: Resume home meds Qualifiers: Depression Type: unspecified Qualified Code(s): F32.9 - Major depressive disorder, single episode, unspecified (5) B12 deficiency Current Visit: Yes Status: Acute Assessment and plan: Serum B12 low at 177 Per hematology recommendations B12 thousand micrograms subcutaneous daily recommend daily injections 4 days total which will be continued at discharge Follow-up as outpatient with hematology for further management (6) DVT prophylaxis Current Visit: Yes Status: Acute Assessment and plan: scds (7) Abdominal pain Current Visit: Yes Status: Acute Assessment and plan: Patient had complained to oncology about right lower quadrant pain she has been experiencing off and on. She does have history of irritable bowel disease. Presently she has no complaints and is nontender to palpation. She is tolerating oral intake. CT abdomen/pelvis with no acute findings to explain her RLQ pain or anemia, a few incidental findings noted of fatty liver infiltration, renal cysts, borderline prominence of the common duct at the pancreatic head level without stone or filling defect. No white count patient's afebrile We will check urinalysis We will check stool for Hemoccult We will check hepatic panel Qualifiers: Abdominal location: generalized Qualified Code(s): R10.84 - Generalized abdominal pain - Time Spent With Patient Total time spent is greater than 50% in coordination of care (as documented) at patient's floor/unit and/or counseling patient: - Subjective Interval history: Patient was seen and examined at bedside. She denies any abdominal or chest pain. She is complaining of migraine this time. We will give Imitrex and Fioricet for migraine. - Constitutional Vitals: Temp Pulse Resp BP Pulse Ox 98.1 F 76 18 127/79 100 07/27/17 15:32 07/27/17 15:32 07/27/17 15:32 07/27/17 15:32 07/27/17 15:32 General appearance: Present: A&O X 3 - Head Head exam: Present: atraumatic, normocephalic - Eye Eye exam: Present: PERRL, conjuntiva pink, sclera anicteric Pupils: Present: PERRL - Neck Neck exam general surgery: Present: supple, trachea midline. Absent: lymphadenopathy - Respiratory Respiratory exam: Present: CTAB. Absent: accessory muscle use, rales, rhonchi, wheezes - Cardiovascular Cardiovascular exam: Present: RRR, +S1, +S2. Absent: diastolic murmur, gallop, rubs, systolic murmur - GI/Abdominal GI/Abdominal exam: Present: normal bowel sounds, soft, no peritoneal signs. Absent: distended, tenderness - Extremities Exam Extremities exam: Present: warm, radial pulses palpable and symmetrical. Absent : calf tenderness, cyanotic, pedal edema - Neurological Exam Neurological exam: Present: CN II-XII intact, oriented X3, no focal deficits. Absent: pronater drift, facial droop, speech deficit - Skin Skin exam: Present: dry, intact Internal Medicine: Result - Labs CBC & Chem 7: 07/27/17 01:02 07/27/17 01:02 Labs: Short CBC 07/27/17 Range/Units 01:02 WBC 6.7 (4.3-11.1) K/mcL Hgb 9.5 L (11.5-15.4) g/dL Hct 31.4 L (35.3-44.9) % Plt Count 195 (140-400) K/mcL Neutrophils # 3.9 (1.6-8.9) K/mcL BMP 07/27/17 01:02 Sodium 144 Potassium 3.9 Chloride 116 H Carbon Dioxide 23 BUN 18 Creatinine 0.81 Glucose 99 Calcium 8.4 L Urine 07/27/17 Range/Units 15:00 Urine Color Yellow (Yellow) Urine Clarity Clear (Clear) Urine pH 7.0 (5.0-8.0) pH Units Ur Specific [place] 1.019 (1.010-1.025) Urine Protein Negative (Neg-Trace) mg/dL Urine Glucose (UA) Normal (Normal) mg/dL - ABG Interpretation ABG results: PT/INR, D-dimer PT 11.0 Seconds (9.4-12.1) 07/25/17 22:39 - Impressions Impressions Abdomen/Pelvis CT 07/26/17 21:10 IMPRESSION: Borderline prominence of the common duct at the pancreatic head level without stone or filling defect. Small low-density renal lesions most likely cysts. Low-density rounded configuration of the left adrenal gland, likely adenoma. Bladder wall thickening raising the question of age-indeterminate cystitis. No acute abnormality otherwise D/ / Duane Medina / Duane Medina Interpreting Provider: Duane Medina Consult Discharge Plan - Plan Referrals: NONE,PCP [Primary Care Provider] -
[2017-07-27] MEDS: rOPINIRole 3 MG, rOPINIRole 1 MG PO SCH (17:19)
[2017-07-27] MEDS: *HR* HYDROcodone/Acet 10/325 mg TABLET PO PRN (17:19)
[2017-07-27] MEDS ORDERED: *HR* OxyCODONE Immed Rel 5 MG TABLET PO PRN (17:58)
[2017-07-27] MEDS ORDERED: Acetaminophen/Butalbital/CaffeineTABLET PO SCH (21:00)
[2017-07-27] MEDS: Ondansetron ODT 4 MG TAB.RAPDIS PO SCH (21:28)
[2017-07-28] MEDS: *HR* HYDROcodone/Acet 10/325 mg TABLET PO PRN (02:28)
[2017-07-28 06:41] LABS: Basophils % 0.5 %; Eosinophils # 0.2 K/mcL (0.0-0.6); Eosinophils % 3.8 %; Hematocrit 33.2 % (35.3-44.9); Hemoglobin 9.9 g/dL (11.5-15.4); Immature Granulocytes % 0.5 % (0-4); Lymphocytes # 1.8 K/mcL (0.6-4.6); Lymphocytes % 32.1 %; Mean Corpuscular HGB Conc 29.8 g/dL (31.6-35.5); Mean Corpuscular Hemoglobin 25.4 pg (28.0-33.3); Mean Corpuscular Volume 85.3 fL (83.0-100.0); Monocytes # 0.6 K/mcL (0.0-1.3); Neutrophils # 2.9 K/mcL (1.6-8.9); Platelet Count 205 K/mcL (140-400); Red Blood Count 3.89 M/mcL (3.82-4.97); Red Cell Distribution Width 14.7 % (11.5-14.5); Segmented Neutrophils % 52.1 %
[2017-07-28 07:02] LABS: BUN/Creatinine Ratio 24 (6-26); Blood Urea Nitrogen 19 mg/dL (6-20); Calcium 8.9 mg/dL (8.6-10.3); Carbon Dioxide 25 mEq/L (23-29); Chloride 111 mEq/L (98-107); Glucose 83 mg/dL (70-105); Osmolality,Calculated 293 (280-300); Potassium 4.2 mEq/L (3.5-5.1); Sodium 141 mEq/L (136-145); eGFR For African Americans > 60 (> 60); eGFR For Non-African Americans > 60 (> 60)
[2017-07-28 07:03] LABS: Albumin 3.7 g/dL (3.5-5.7); Albumin/Globulin Ratio 1.6 (1.1-2.2); Bilirubin,Direct 0.1 mg/dL (0.0-0.2); Bilirubin,Total 0.1 mg/dL (0.3-1.0); Globulin 2.3 g/dL (2.4-3.5)
[2017-07-28] MEDS: BuPROPion SR (12 HR) 150 MG TABLET PO SCH (08:44)
[2017-07-28] MEDS: Baclofen 10 MG TABLET PO SCH (08:44)
[2017-07-28] MEDS: Ondansetron ODT 4 MG TAB.RAPDIS PO SCH (08:44)
[2017-07-28] MEDS: FLUoxetine 20 MG CAPSULE PO SCH (08:44)
[2017-07-28] MEDS: Gabapentin 400 MG CAPSULE PO SCH (08:45)
[2017-07-28] MEDS: Topiramate 100 MG TABLET PO SCH (08:45)
[2017-07-28] MEDS: Cyanocobalamin (B-12) 1,000 MCG/ML VIAL SQ SCH (08:46)
--- NOTE | 2017-07-28 15:13 | Discharge Summary ---
- NOTES TO OUTPATIENT PROVIDER Notes to Outpatient Provider: Patient will follow-up with hematology-B12 injections/iron infusions will need to follow-up with hematology as an outpatient. Follow-up outpatient EGD colonoscopy Orders not resulted at time of discharge: Pending orders 07/26/17 12:21 Occult Blood,Stool [BF] Routine 07/27/17 01:02 Intrinsic Factor Blocking Ab AM 0400 Parietal Cell IgG AM 0400 Date of Encounter: 07/28/17 Time of Encounter: 15:04 - Discharge Diagnosis (1) Chest pain Priority: Secondary Status: Acute Qualifiers: Chest pain type: unspecified Qualified Code(s): R07.9 - Chest pain, unspecified (2) Iron deficiency anemia Priority: Primary Status: Acute Qualifiers: Iron deficiency anemia type: other iron deficiency Qualified Code(s): D50.8 - Other iron deficiency anemias (3) Weakness Priority: Secondary Status: Acute (4) Depression Priority: Secondary Status: Acute Qualifiers: Depression Type: unspecified Qualified Code(s): F32.9 - Major depressive disorder, single episode, unspecified (5) B12 deficiency Priority: Secondary Status: Acute (6) Abdominal pain Priority: Secondary Status: Acute Qualifiers: Abdominal location: generalized Qualified Code(s): R10.84 - Generalized abdominal pain Hospital course: Ms. Nick is a 51 year old female past medical history depression and arthritis migraines iron deficiency anemia. Presented to the emergency department recommendation of her PCP for anemia. She been growing increasingly lethargic and weak shortness of breath or past few weeks. She did have some lab work including iron studies due to her history of iron deficiency and was found that her iron numbers were very low. She is unable to tolerate oral iron due to constipation. She did have colonoscopy/EGD 2016 which were unremarkable. She did have some chest discomfort EKG showed no ischemic findings troponins were negative 3 she had similar discomfort 2 years ago when she had low iron. She did have occasional abdominal pain CT of abdomen/pelvis with no acute abnormalities. Urinalysis was negative Hepatic panel was within normal limits stool for occult blood was ordered however she had not no stool. No active bleeding noted during Hemoglobin was 9.7 on presentation. She was seen by oncology patient was initiated on iron infusion. She also was B12 deficient and was started on B12 injections. Her hemoglobin steadily climbed. She has had no more chest pain, abdominal pain is resolved she did have a migraine during admission but it also has resolved. I did advise the patient to follow-up with her primary care physician as well as oncology outpatient she verbalized understanding. The patient received 3 doses of B12 thousand micrograms daily. She will receive 1 more dose in the a.m. which I will send home with her. Patient states she has taken B12 injections before and knows how to administer the medication. Advised nursing to demonstrate administration of subcutaneous injection. I answered patient's questions patient is hemodynamically stable and she is ready for discharge Discharge discussed with: patient - Time Spent with Patient Total time spent providing and/or coordinating discharge services: - Discharge Medications Prescriptions: Cyanocobalamin (B-12) [Vitamin B12] 1,000 mcg SQ DAILY #1 vial Home Medications: Acetaminophen/Butalbital/Caffe [Fioricet] 1 tab PO BID 07/25/17 [History] Baclofen [Lioresal] 10 mg PO TID 07/25/17 [History] BuPROPion SR (12 HR) [Wellbutrin SR] 150 mg PO BID 07/25/17 [History] Calcium Carbonate [Calcium] 600 mg PO BID 07/25/17 [History] Estradiol 2 mg PO DAILY 07/25/17 [History] FLUoxetine HCl [Fluoxetine HCl] 80 mg PO DAILY 07/25/17 [History] Gabapentin [Neurontin] 800 mg PO TID 07/25/17 [History] HYDROcodone/Acet 10/325 mg [[place] 10-325 mg] 1 tab PO TID 07/25/17 [History] Lubiprostone [Amitiza] 24 mcg PO BID 07/25/17 [History] Meloxicam 15 mg PO DAILY 07/25/17 [History] Omeprazole [PriLOSEC] 40 mg PO DAILY 07/25/17 [History] Ondansetron HCl 4 mg PO BID 07/25/17 [History] Polymyxn-B/Trimeth Opth Drops [Polytrim Opth Drops] 1 drop OP DAILY 07/25/17 [ History] Ropinirole HCl [Requip] 4 mg PO 1700 07/25/17 [History] SUMAtriptan Succinate [Imitrex] 100 mg PO DAILY PRN 07/25/17 [History] Topiramate [Topamax] 100 mg PO BID 07/25/17 [History] Cyanocobalamin (B-12) [Vitamin B12] 1,000 mcg SQ DAILY #1 vial 07/28/17 [Rx] Allergies/Adverse Reactions: 3 Allergy/AdvReac Type Severity Reaction Status Date / Time sulfamethoxazole AdvReac Hives Verified 07/25/17 20:28 [From ] trimethoprim [From ] AdvReac Hives Verified 07/25/17 20:28 Date of admission: 07/25/17 20:33 Primary care physician: PCP NONE Consults: 07/25/17 22:18 Consult to Oncology Hematology [CONS] Routine Consulting Provider: Maryam Blackmon Reason for Consult: iron deficeincy anemia Call Completed: No Discharging clinician: Chelsey Ramirez Anticipated date of discharge: 07/28/17 - Constitutional Vitals: Temp Pulse Resp BP Pulse Ox 97.4 F L 92 17 130/75 96 07/28/17 11:03 07/28/17 11:03 07/28/17 11:03 07/28/17 11:03 07/28/17 11:03 General appearance: Present: A&O X 3 - Head Head exam: Present: atraumatic, normocephalic - Eye Eye exam: Present: PERRL, conjuntiva pink, sclera anicteric Pupils: Present: PERRL - Neck Neck exam general surgery: Present: supple, trachea midline. Absent: lymphadenopathy - Respiratory Respiratory exam: Present: CTAB. Absent: accessory muscle use, rales, rhonchi, wheezes - Cardiovascular Cardiovascular exam: Present: RRR, +S1, +S2. Absent: diastolic murmur, gallop, rubs, systolic murmur - GI/Abdominal GI/Abdominal exam: Present: normal bowel sounds, soft, no peritoneal signs. Absent: distended, tenderness - Extremities Exam Extremities exam: Present: warm, radial pulses palpable and symmetrical. Absent : calf tenderness, cyanotic, pedal edema - Neurological Exam Neurological exam: Present: CN II-XII intact, oriented X3, no focal deficits. Absent: pronater drift, facial droop, speech deficit - Skin Skin exam: Present: dry, intact - Patient Status Disposition: Home, Self-Care Condition: Fair Functional capacity at discharge: independent ambulation Overall status at discharge: patient is back to baseline - Discharge Instructions Instructions: Chest Pain (DC) Follow Up With: NONE,PCP [Primary Care Provider] - Ollie Romero MD [Partnered Physician] - - Diet and Activity Activity: increase activity as tolerated Diet: advance to your usual diet
[2017-07-28 15:24] VITALS: BP 129/77
--- NOTE | 2017-07-28 17:39 | Electrocardiograph Report ---
[place] [id number] Test Date: 2017-07-27 Pat Name: Sujatha Nick Department: 113 Room: [facility] Gender: F Production Tech: : 1965 Requested By: Chelsey Ramirez Order Number: [id number] Reading MD: Jt Mock Measurements Intervals [place] Rate: 72 P: 24 MA: 152 QRS: 28 QRSD: 86 T: 73 QT: 389 QTc: 413 Interpretive Statements SINUS RHYTHM Electronically Signed On 07-28-2017 17:37:35 EDT by Jt Mock
== END 2017-07-28 17:30 | disposition home or self-care (01) ==
LOC: 2SOUTHHOLD 17:18 → EMEROO 17:18 → 2SOUTHHOLD 20:56 → 3BNU 07-26 15:07
PROVIDERS: ADMIT Internal Medicine; ATTEND Internal Medicine